=== PATIENT | female | born 1990 | race Caucasian/White ===

== ENCOUNTER 2021-07-11 10:25 | Day surgery (SDC) | payer OTHER ==
[2021-07-11] MEDS ORDERED: hydrALAZINE 20 MG/ML VIAL SLOW IVP PRN (11:49)
== END 2021-07-11 13:30 | disposition home health service (06) ==
LOC: CSHERS 10:25
PROVIDERS: ATTEND Obstetrics & Gynecology
DX: O36.8330 Maternal care for abnormalities of the fetal heart rate or rhythm, third trimester, not applicable or unspecified (principal); O99.413 Diseases of the circulatory system complicating pregnancy, third trimester; I47.1 Supraventricular tachycardia; Z3A.34 34 weeks gestation of pregnancy; Z79.899 Other long term (current) drug therapy; Z88.5 Allergy status to narcotic agent; Z91.048 Other nonmedicinal substance allergy status
CPT/HCPCS: 59025; 99282

== ENCOUNTER 2021-07-15 05:14 | Inpatient (IN) | payer OTHER ==
[2021-07-15] MEDS ORDERED: Bicitra 30 ML UDCUP PO PRN (05:34)
[2021-07-15] MEDS ORDERED: hydrALAZINE 20 MG/ML VIAL SLOW IVP PRN ×2 (05:34→06:34)
[2021-07-15] MEDS ORDERED: Promethazine HCl 25 MG/ML VIAL IM PRN ×2 (05:34→06:44)
[2021-07-15] MEDS ORDERED: Ondansetron PF 4 MG/2 ML Vial IVP PRN ×2 (05:34→06:44)
[2021-07-15] MEDS ORDERED: Famotidine/PF 20 mg/2ml Vial SLOW IVP PRN (05:34)
[2021-07-15 05:42] LABS: Hemoglobin 11.8 g/dL (12.0-15.5); Mean Corpuscular HGB CONC 32.6 g/dL (32.0-36.0); Mean Corpuscular Hemoglobin 30.3 pg (27.0-33.0); Mean Corpuscular Volume 93.1 fl (81.6-98.3); Mean Platelet Volume 12.1 fl (7.4-10.4); Platelet Count 121 10x3/uL (150-450); RBC Distribution Width 14.6 % (11.5-14.5); Red Blood Cell (RBC) Count 3.89 10x6/uL (3.90-5.03); White Blood Cell (WBC) Count 13.8 10x3/uL (3.5-10.5)
[2021-07-15] MEDS ORDERED: Lactated Ringer's 1,000 ML IV SCH (05:45)
[2021-07-15] MEDS ORDERED: CEFAZOLIN 2 GM in Premix Bag 1 BAG IVPB SCH (05:45)
[2021-07-15] MEDS ORDERED: Fentanyl 100 MCG/2 ML VIAL ONE ×2 (05:48→08:02)
[2021-07-15] MEDS ORDERED: PROPOFOL 20 ML ONE (05:48)
[2021-07-15] MEDS ORDERED: Carboprost 250 MCG/ML AMP ONE (06:06)
[2021-07-15 06:12] LABS: Hep B Surf Ag Non-Reactive S/CO (NonReactive); Syphilis Antibody Nonreactive (Nonreactive); Syphilis Antibody Index 0.05 S/CO (<1.00 Non-Reactive)
[2021-07-15] MEDS ORDERED: Tranexamic Acid 1,000 MG/10 ML VIAL ONE (06:17)
[2021-07-15] MEDS ORDERED: Midazolam HCl 2 mg/2 ml Vial ONE (06:17)
[2021-07-15 06:20] LABS: HBSAg Index 0.19 S/CO (0-0.99)
[2021-07-15] MEDS ORDERED: Oxytocin 10 UNITS/ML VIAL ONE (06:20)
[2021-07-15] MEDS ORDERED: diphenhydrAMINE 25 MG CAP PO PRN ×2 (06:34→06:44)
[2021-07-15] MEDS ORDERED: Misoprostol 200 MCG TAB PR PRN (06:34)
[2021-07-15] MEDS ORDERED: HYDROcodone/Acetaminophen 5/325 mg Tablet PO PRN ×3 (06:34→15:18)
[2021-07-15] MEDS ORDERED: Bisacodyl 10 MG SUPP PR PRN (06:34)
[2021-07-15] MEDS ORDERED: Zolpidem Tartrate 5 MG TAB PO PRN ×2 (06:34→06:44)
[2021-07-15] MEDS ORDERED: Simethicone Chewable 80 MG TAB PO PRN (06:34)
[2021-07-15] MEDS ORDERED: Boostrix 0.5 ML (Tdap) VIAL IM ONE (06:34)
[2021-07-15] MEDS ORDERED: Lanolin Ointment 7 GM TUBE TOP PRN (06:34)
[2021-07-15] MEDS ORDERED: Acetaminophen 325 MG TAB PO PRN (06:34)
[2021-07-15] MEDS ORDERED: diphenhydrAMINE 50 MG/ML VIAL IM PRN (06:44)
[2021-07-15] MEDS ORDERED: diphenhydrAMINE 50 MG/ML VIAL IVP PRN (06:44)
[2021-07-15] MEDS ORDERED: Naloxone HCl 0.4 mg/ml Vial IV PRN (06:44)
[2021-07-15] MEDS ORDERED: HYDROmorphone 10 mg/100 ml CADD IVPB PRN (06:44)
[2021-07-15] MEDS ORDERED: Communication Order-Pharmacy FS PRN (06:45)
[2021-07-15] MEDS ORDERED: Ondansetron HCl/PF 4 MG/2 ML Vial IVP PRN (06:45)
[2021-07-15] MEDS ORDERED: Ketorolac Tromethamine 30 MG/ML VIAL IVP SCH (06:45)
[2021-07-15] MEDS ORDERED: Fentanyl 100 MCG/2 ML VIAL SLOW IVP PRN (06:45)
[2021-07-15] MEDS ORDERED: Meperidine HCl/PF 25 MG/ML VIAL SLOW IVP PRN (06:45)
[2021-07-15] MEDS ORDERED: Dexamethasone 4 mg/ml Vial ONE (06:48)
[2021-07-15] MEDS ORDERED: Ondansetron PF 4 MG/2 ML Vial ONE (06:49)
[2021-07-15 07:13] VITALS: BMI 38.2
[2021-07-15] MEDS ORDERED: Ketorolac Tromethamine 30 MG/ML VIAL ONE (07:38)
[2021-07-15 07:44] LABS: Hemoglobin 9.9 g/dL (12.0-15.5); Mean Corpuscular HGB CONC 32.8 g/dL (32.0-36.0); Mean Corpuscular Hemoglobin 30.1 pg (27.0-33.0); Mean Corpuscular Volume 91.8 fl (81.6-98.3); Mean Platelet Volume 12.1 fl (7.4-10.4); Platelet Count 94 10x3/uL (150-450); RBC Distribution Width 14.7 % (11.5-14.5); Red Blood Cell (RBC) Count 3.29 10x6/uL (3.90-5.03); White Blood Cell (WBC) Count 16.5 10x3/uL (3.5-10.5)
[2021-07-15] MEDS ORDERED: HYDROmorphone 40 MG/20 ML 10 MG in Sodium Chloride 0.9% 45 ML IV PRN (07:45)
[2021-07-15] MEDS: Docusate 100 MG CAP PO SCH ×2 (08:50→21:50)
[2021-07-15 09:11] LABS: SARS-CoV-2 NAA Rapid Test Not Detected (NotDetected)
[2021-07-15 09:12] LABS: D-Dimer Test 31.14 mg/L FEU (0.19-0.50); INR-International Normal Ratio 1.1; Prothrombin Time 11.8 sec (9.5-12.1)
[2021-07-15] MEDS: Lactated Ringer's 1,000 ML IV SCH ×3 (11:12→21:52)
[2021-07-15] MEDS: Ferrous Sulfate 325 MG TAB PO SCH ×2 (11:15→21:50)
[2021-07-15] MEDS: Prenatal Vitamin 1 TAB PO SCH (11:15)
[2021-07-15] MEDS ORDERED: buPROPion HCl 100 MG TAB PO SCH (12:30)
[2021-07-15 15:25] LABS: Hemoglobin 9.2 g/dL (12.0-15.5); Mean Corpuscular HGB CONC 32.6 g/dL (32.0-36.0); Mean Corpuscular Hemoglobin 29.8 pg (27.0-33.0); Mean Corpuscular Volume 91.3 fl (81.6-98.3); Mean Platelet Volume 12.4 fl (7.4-10.4); Platelet Count 90 10x3/uL (150-450); RBC Distribution Width 14.6 % (11.5-14.5); Red Blood Cell (RBC) Count 3.09 10x6/uL (3.90-5.03); White Blood Cell (WBC) Count 16.4 10x3/uL (3.5-10.5)
[2021-07-15] MEDS: HYDROcodone/Acetaminophen 5/325 mg Tablet PO PRN ×2 (15:29→19:40)
[2021-07-15] MEDS: Ibuprofen 800 MG TAB PO SCH ×2 (15:29→21:50)
[2021-07-15] MEDS: Labetalol HCl 200 MG TAB PO SCH ×2 (15:29→21:52)
[2021-07-16 05:00] LABS: Hemoglobin 7.9 g/dL (12.0-15.5); Mean Corpuscular HGB CONC 32.1 g/dL (32.0-36.0); Mean Corpuscular Hemoglobin 29.6 pg (27.0-33.0); Mean Corpuscular Volume 92.1 fl (81.6-98.3); Mean Platelet Volume 12.7 fl (7.4-10.4); Platelet Count 89 10x3/uL (150-450); Red Blood Cell (RBC) Count 2.67 10x6/uL (3.90-5.03); White Blood Cell (WBC) Count 11.5 10x3/uL (3.5-10.5)
[2021-07-16] MEDS: Lactated Ringer's 1,000 ML IV SCH ×2 (05:24→07:46)
[2021-07-16] MEDS: Ibuprofen 800 MG TAB PO SCH (05:25)
[2021-07-16 07:56] VITALS: BP 109/54; TEMP 98.8
[2021-07-16] MEDS: Labetalol HCl 200 MG TAB PO SCH ×2 (08:33→08:34)
[2021-07-16] MEDS: Docusate 100 MG CAP PO SCH (08:33)
[2021-07-16] MEDS: Prenatal Vitamin 1 TAB PO SCH (08:33)
[2021-07-16] MEDS: Ferrous Sulfate 325 MG TAB PO SCH (08:33)
[2021-07-16] MEDS ORDERED: buPROPion HCl 100 MG TAB PO SCH (09:00)
[2021-07-17 09:02] LABS: RapidComm Collect By NURSE; pH (Cord, venous) 7.123 (7.250-7.350)
[2021-07-17 09:03] LABS: RapidComm Collect By NURSE
== END 2021-07-16 09:20 | disposition home or self-care (01) | DRG 786 ==
LOC: CSHLD/OP 05:14 → CSHLD 05:15 → CSHPP 10:51
PROVIDERS: ADMIT Obstetrics & Gynecology; ATTEND Obstetrics & Gynecology
PROC: 10D00Z1 Extraction of Products of Conception, Low, Open Approach (ICD-10-PCS; principal; 2021-07-15)
DX: O76 Abnormality in fetal heart rate and rhythm complicating labor and delivery (principal); O45.93 Premature separation of placenta, unspecified, third trimester; Z3A.34 34 weeks gestation of pregnancy; Z37.0 Single live birth; Z20.822 Contact with and (suspected) exposure to COVID-19
CPT/HCPCS: 36415; 36430; 51702; 82805; 85027; 85049; 85300; 85362; 85379; 85384; 85610; 85730; 86780; 86850; 86900; 86901; 87340; 88307; 99285; J0690; J1100; J1170; J1885; J2250; J2405; J2590; J2704; J3010; J3490; U0002

== ENCOUNTER 2022-12-03 09:58 | Inpatient (IN) | payer OTHER ==
[2022-12-02 10:05] LABS: Hemoglobin 10.6 g/dL (12.0-15.5); Platelet Count 142 10x3/uL (150-450)
[2022-12-02 10:07] LABS: HBSAg Index 0.16 S/CO (0-0.99); Hep B Surf Ag Non-Reactive S/CO (NonReactive)
[2022-12-02 10:08] LABS: Syphilis Antibody Nonreactive (Nonreactive); Syphilis Antibody Index 0.11 S/CO (<1.00 Non-Reactive)
[2022-12-03 10:53] VITALS: BMI 39.8
[2022-12-03] MEDS ORDERED: Tranexamic Acid 1,000 MG/10 ML VIAL ONE (11:49)
[2022-12-03] MEDS ORDERED: Methylergonovine 0.2 MG/ML VIAL ONE (11:49)
[2022-12-03] MEDS ORDERED: Famotidine/PF 20 mg/2ml Vial ONE (11:49)
[2022-12-03] MEDS ORDERED: CEFAZOLIN 2 GM VIAL ONE (11:49)
[2022-12-03] MEDS ORDERED: Misoprostol 200 MCG TAB ONE (11:50)
[2022-12-03] MEDS ORDERED: Lanolin Ointment 7 GM TUBE TOP PRN (11:56)
[2022-12-03] MEDS ORDERED: HYDROcodone/Acetaminophen 5/325 mg Tablet PO PRN ×2 (11:56)
[2022-12-03] MEDS ORDERED: Famotidine/PF 20 mg/2ml Vial SLOW IVP PRN (11:56)
[2022-12-03] MEDS ORDERED: Carboprost 250 MCG/ML AMP IM PRN (11:56)
[2022-12-03] MEDS ORDERED: Diphenoxylate HCl/Atropine Tablet PO PRN ×2 (11:56)
[2022-12-03] MEDS ORDERED: Promethazine HCl 25 MG/ML VIAL IM PRN ×2 (11:56→15:16)
[2022-12-03] MEDS ORDERED: Bicitra 30 ML UDCUP PO PRN (11:56)
[2022-12-03] MEDS ORDERED: Meperidine HCl/PF 25 MG/ML VIAL SLOW IVP PRN ×2 (11:56→15:16)
[2022-12-03] MEDS ORDERED: Fentanyl 100 MCG/2 ML VIAL SLOW IVP PRN ×2 (11:56→15:16)
[2022-12-03] MEDS ORDERED: Ondansetron PF 4 MG/2 ML Vial IVP PRN ×2 (11:56→15:16)
[2022-12-03] MEDS ORDERED: Ondansetron HCl/PF 4 MG/2 ML Vial IVP PRN ×2 (11:56→15:16)
[2022-12-03] MEDS ORDERED: Acetaminophen 500 MG TAB PO PRN (11:56)
[2022-12-03] MEDS ORDERED: CEFAZOLIN 2 GM in Sodium Chloride 0.9% 100 ML IVPB SCH (11:56)
[2022-12-03] MEDS ORDERED: NS w/ Oxytocin 30 units 500 ML IV SCH (11:56)
[2022-12-03] MEDS ORDERED: Butorphanol Tartrate 1 MG/ML VIAL SLOW IVP PRN (11:56)
[2022-12-03] MEDS ORDERED: Simethicone Chewable 80 MG TAB PO PRN (11:56)
[2022-12-03] MEDS ORDERED: hydrALAZINE 20 MG/ML VIAL SLOW IVP PRN ×2 (11:56)
[2022-12-03] MEDS ORDERED: diphenhydrAMINE 25 MG CAP PO PRN (11:56)
[2022-12-03] MEDS ORDERED: Boostrix 0.5 ML (Tdap) VIAL (>/=7 yrs of age) IM ONE (11:56)
[2022-12-03] MEDS ORDERED: Acetaminophen 325 MG TAB PO PRN (11:56)
[2022-12-03] MEDS ORDERED: Tranexamic Acid 1,000 MG/10 ML VIAL IVP PRN (11:56)
[2022-12-03] MEDS ORDERED: Misoprostol 200 MCG TAB PR PRN (11:56)
[2022-12-03] MEDS ORDERED: Ketorolac Tromethamine 30 MG/ML VIAL IVP SCH ×2 (12:00→15:30)
[2022-12-03] MEDS ORDERED: Morphine PF 10 MG/10 ML VIAL ONE (12:07)
[2022-12-03] MEDS ORDERED: PHENYLEPHRINE-NS 100 MCG/ML 10 ML SYRINGE ONE (12:07)
[2022-12-03] MEDS ORDERED: Oxytocin 10 UNITS/ML VIAL ONE (12:07)
[2022-12-03] MEDS ORDERED: Fentanyl 100 MCG/2 ML VIAL ONE (12:07)
[2022-12-03] MEDS ORDERED: Ondansetron PF 4 MG/2 ML Vial ONE (12:08)
[2022-12-03] MEDS ORDERED: Dexamethasone 4 mg/ml Vial ONE (12:08)
[2022-12-03] MEDS ORDERED: diphenhydrAMINE 50 MG/ML VIAL ONE (13:05)
[2022-12-03] MEDS ORDERED: Ketorolac Tromethamine 30 MG/ML VIAL ONE (14:07)
[2022-12-03] MEDS ORDERED: diphenhydrAMINE 50 MG/ML VIAL IVP PRN (15:16)
[2022-12-03] MEDS ORDERED: Moisturizing Cream (Eucerin) 113 GM JAR TOP PRN (15:16)
[2022-12-03] MEDS ORDERED: HYDROmorphone 2 MG/ML VIAL SLOW IVP PRN (15:16)
[2022-12-03] MEDS ORDERED: Naloxone HCl 0.4 mg/ml Vial IV PRN (15:16)
[2022-12-03] MEDS ORDERED: Promethazine HCl 25 MG SUPP PR PRN (15:16)
[2022-12-03] MEDS ORDERED: Naloxone HCl 0.4 mg/ml Vial IVP PRN ×2 (15:16)
[2022-12-03] MEDS ORDERED: Communication Order-Pharmacy FS SCH (15:30)
[2022-12-03] MEDS: Lactated Ringer's 1,000 ML IV SCH ×2 (16:52→16:53)
[2022-12-03] MEDS: Ketorolac Tromethamine 30 MG/ML VIAL IVP PRN (20:09)
[2022-12-03] MEDS ORDERED: Carboprost 250 MCG/ML AMP IM SCH (20:30)
[2022-12-03] MEDS ORDERED: Diphenoxylate HCl/Atropine Tablet PO SCH (20:30)
[2022-12-03] MEDS ORDERED: Tranexamic Acid 1,000 MG/10 ML VIAL IVP SCH (21:15)
[2022-12-03 22:08] LABS: Hemoglobin 8.9 g/dL (12.0-15.5); Mean Corpuscular HGB CONC 31.8 g/dL (32.0-36.0); Mean Corpuscular Hemoglobin 27.6 pg (27.0-33.0); Mean Corpuscular Volume 86.7 fl (81.6-98.3); Mean Platelet Volume 11.8 fl (7.4-10.4); Platelet Count 134 10x3/uL (150-450); RBC Distribution Width 16.4 % (11.5-14.5); Red Blood Cell (RBC) Count 3.23 10x6/uL (3.90-5.03); White Blood Cell (WBC) Count 14.5 10x3/uL (3.5-10.5)
[2022-12-03 22:30] LABS: D-Dimer Test 3.37 mg/L FEU (0.19-0.50); INR-International Normal Ratio 0.9; PTT 30.1 sec (22.0-33.0); Prothrombin Time 9.9 sec (9.5-12.1)
[2022-12-03] MEDS: Docusate 100 MG CAP PO SCH (23:05)
[2022-12-04 04:01] LABS: Hemoglobin 7.6 g/dL (12.0-15.5); Mean Corpuscular HGB CONC 31.4 g/dL (32.0-36.0); Mean Corpuscular Hemoglobin 27.6 pg (27.0-33.0); Mean Platelet Volume 12.7 fl (7.4-10.4); Platelet Count 119 10x3/uL (150-450); RBC Distribution Width 16.8 % (11.5-14.5); Red Blood Cell (RBC) Count 2.75 10x6/uL (3.90-5.03); White Blood Cell (WBC) Count 12.6 10x3/uL (3.5-10.5)
[2022-12-04] MEDS ORDERED: Misoprostol 200 MCG TAB PR SCH (05:00)
[2022-12-04] MEDS: Ketorolac Tromethamine 30 MG/ML VIAL IVP PRN (05:53)
[2022-12-04] MEDS: Lactated Ringer's 1,000 ML IV SCH (07:25)
[2022-12-04] MEDS: Docusate 100 MG CAP PO SCH ×2 (08:21→21:59)
[2022-12-04] MEDS: HYDROcodone/Acetaminophen 5/325 mg Tablet PO PRN ×5 (08:21→21:58)
[2022-12-04] MEDS: Prenatal Vitamin 1 TAB PO SCH (08:21)
[2022-12-04] MEDS: Ibuprofen 800 MG TAB PO SCH ×2 (14:25→21:59)
[2022-12-04] MEDS: Ferrous Sulfate 325 MG TAB PO SCH (17:02)
[2022-12-04] MEDS ORDERED: Ibuprofen 800 MG TAB PO SCH (22:00)
[2022-12-05] MEDS: HYDROcodone/Acetaminophen 5/325 mg Tablet PO PRN ×6 (01:08→22:33)
[2022-12-05] MEDS: Ibuprofen 800 MG TAB PO SCH ×3 (04:55→22:29)
[2022-12-05] MEDS: Lactated Ringer's 1,000 ML IV SCH ×2 (07:18→07:19)
[2022-12-05] MEDS: Docusate 100 MG CAP PO SCH ×2 (07:40→22:29)
[2022-12-05] MEDS: Ferrous Sulfate 325 MG TAB PO SCH ×2 (07:40→18:09)
[2022-12-05] MEDS: Prenatal Vitamin 1 TAB PO SCH (07:40)
[2022-12-06] MEDS: HYDROcodone/Acetaminophen 5/325 mg Tablet PO PRN ×3 (04:07→12:01)
[2022-12-06] MEDS: Ibuprofen 800 MG TAB PO SCH (05:16)
[2022-12-06] MEDS: Lactated Ringer's 1,000 ML IV SCH (07:21)
[2022-12-06] MEDS: Prenatal Vitamin 1 TAB PO SCH (08:12)
[2022-12-06] MEDS: Docusate 100 MG CAP PO SCH (08:12)
[2022-12-06] MEDS: Ferrous Sulfate 325 MG TAB PO SCH (08:12)
[2022-12-06 08:49] VITALS: BP 140/81; TEMP 97.6
== END 2022-12-06 12:05 | disposition home or self-care (01) | DRG 787 ==
LOC: CSHLD 09:58 → MERGE 12:00 → CSHPP 15:50
PROVIDERS: ADMIT Obstetrics & Gynecology; ATTEND Obstetrics & Gynecology
PROC: 10D00Z1 Extraction of Products of Conception, Low, Open Approach (ICD-10-PCS; principal; 2022-12-03)
DX: O34.211 Maternal care for low transverse scar from previous cesarean delivery (principal); D62 Acute posthemorrhagic anemia; O72.1 Other immediate postpartum hemorrhage; O90.81 Anemia of the puerperium; Z3A.39 39 weeks gestation of pregnancy; Z37.0 Single live birth; Z88.5 Allergy status to narcotic agent
CPT/HCPCS: 51702; 85014; 85018; 85027; 85049; 85300; 85362; 85379; 85384; 85610; 85730; 86780; 86850; 86900; 86901; 87340; J1100; J1200; J1885; J2274; J2405; J2590; J3010; J3490; S0028